=== PATIENT | male | born 1975 | race Two or more races ===

== ENCOUNTER 2019-04-18 17:30 | Emergency (ER) | payer OTHER ==
[~2019-04-18] VITALS: Ht 167.6 cm; Wt 68.0 kg
[2019-04-18 17:32] VITALS: BP 105/65
--- NOTE | 2019-04-18 17:45 | NUR ---
XRAY AT BEDSIDE
--- NOTE | 2019-04-18 17:45 | NUR ---
ICE PACK APPLIED TO LLE AND MEDICATED PER [facility] CMS/CAP REFILL INTACT DESPITE SIGNIFICANT SWELLING
[2019-04-18] MEDS ORDERED: ONDANSETRON ODT 4 MG ONE (17:47)
[2019-04-18] MEDS ORDERED: HYDROcodone/APAP 5/325 TABLET ONE (17:47)
[2019-04-18] MEDS ORDERED: HYDROcodone/APAP 5/325 TABLET PO ONE (18:00)
[2019-04-18] MEDS ORDERED: ONDANSETRON ODT 8 MG PO ONE (18:00)
--- NOTE | 2019-04-18 18:25 | NUR ---
EMT AT BEDSIDE-SPLINT APPLIED/CRUTCHES PROVIDED
== END 2019-04-18 18:41 | disposition home or self-care (01) ==
LOC: ED 18:28
DX: S93.402A Sprain of unspecified ligament of left ankle, initial encounter (principal); I10 Essential (primary) hypertension; E78.00 Pure hypercholesterolemia, unspecified; W19.XXXA Unspecified fall, initial encounter; Y93.21 Activity, ice skating; Y92.488 Other paved roadways as the place of occurrence of the external cause; Y99.8 Other external cause status
CPT/HCPCS: 29515; 73610; 99283; Q0162